=== PATIENT | male | born 1940 | race Caucasian/White ===

== ENCOUNTER 2024-06-05 08:47 | Inpatient (IN) | payer SELFPAY ==
[2024-06-05] VITALS (37 sets, daily range): BP systolic 62–138; BP diastolic 44–72; PULSE 92–125; RESP 18–30; TEMP 36.78072–37.5856; O2SAT 85–100
[~2024-06-05] VITALS: Ht 175.3 cm; Wt 70.8 kg
[2024-06-05] MEDS ORDERED: ALBUTEROL (0.083%) 2.5MG/3ML NEB HHN ONE (09:15)
[2024-06-05] MEDS: SODIUM CHLORIDE 0.9% 1,000 ML IV ONE ×2 (09:17→09:52)
[2024-06-05] MEDS: PANTOPRAZOLE SODIUM 40 MG/VIAL IV ONE (09:26)
[2024-06-05] MEDS: PIPERACILLIN/TAZO 3.375G/50ML 50 ML IV ONE (09:26)
[2024-06-05 09:37] LABS: DIFFERENTIAL COMMENT 1; HEMATOCRIT. 38.5 % (42.0-52.0); HEMOGLOBIN. 12.6 g/dL (14.0-18.0); MEAN CORPUSCULAR HGB CONC 32.8 g/dL (31.0-37.0); MEAN CORPUSCULAR VOLUME 103.6 fL (80.0-94.0); MEAN PLATELET VOLUME 10.7 fl (7.4-10.4); PLATELET 148 x1000/uL (130-400); RED BLOOD CELL COUNT 3.71 mill/uL (4.7-6.1)
[2024-06-05 09:46] LABS: CHLORIDE 110 mEq/L (98-107); POTASSIUM 3.9 mEq/L (3.5-5.1); SODIUM 141 mEq/L (136-145)
[2024-06-05 09:47] LABS: CALCIUM 8.9 mg/dL (8.7-10.4); CARBON DIOXIDE 14 mEq/L (21-32)
[2024-06-05 09:52] LABS: CREATININE 3.3 mg/dL (0.6-1.3); GLUCOSE 102 mg/dL (70-105); TROPONIN I HIGH SENSITIVITY 36 ng/L (3.0-53); UREA NITROGEN BLOOD 48 mg/dL (9-23)
[2024-06-05 09:54] LABS: ALANINE AMINOTRANSFERASE 31 IU/L (10-49); ALBUMIN 3.9 g/dL (3.2-4.8); ASPARTATE AMINOTRANSFERASE 34 IU/L (<34); CREATINE KINASE 584 IU/L (46-171); INR 1.2
[2024-06-05 09:55] LABS: BILIRUBIN DIRECT 0.4 mg/dL (<=3.0); BILIRUBIN TOTAL 0.9 mg/dL (0.1-1.0); PROTEIN TOTAL 6.6 g/dL (6.0-8.3)
[2024-06-05] MEDS: VANCOMYCIN 1G PREMIX 200 ML IV ONE (10:03)
[2024-06-05 10:16] LABS: LACTIC ACID 7.8 mmol/L (0.4-2.0)
[2024-06-05] MEDS: NOREPINEPHRINE 8MG/250ML PMX 250 ML IV ONE (10:23)
[2024-06-05] MEDS: SODIUM CHLORIDE 0.9% 250 ML IV ONE (10:56)
[2024-06-05 11:26] LABS: LACTIC ACID 5.9 mmol/L (0.4-2.0)
[2024-06-05] MEDS: ALBUTEROL (0.083%) 2.5MG/3ML NEB HHN NR (12:42)
[2024-06-05 13:29] LABS: CLARITY URINE CLOUDY (CLEAR); COLOR URINE YELLOW (YELLOW); GLUCOSE URINE NEGATIVE (NEGATIVE); KETONES URINE NEGATIVE (NEGATIVE); LEUKOCYTE ESTERASE URINE TRACE (NEGATIVE); NITRITE URINE NEGATIVE (NEGATIVE); OCCULT BLOOD URINE 2+ (NEGATIVE); PH URINE 5.5 (4.5-8.0); PROTEIN URINE 1+ (NEGATIVE); SPECIFIC GRAVITY URINE 1.018 (1.005-1.030)
[2024-06-05] MEDS ORDERED: ONDANSETRON HCL 4MG/2ML INJ IV PRN (13:45)
[2024-06-05] MEDS ORDERED: MAGNESIUM/ALUMINUM HYDROXIDE/SIMETHICONE 30ML UDC PO PRN (13:45)
[2024-06-05] MEDS ORDERED: PIPERACILLIN/TAZOBACTAM 3.375 G in DEXTROSE 5% WATER 50 ML IV SCH (13:45)
[2024-06-05] MEDS ORDERED: HYDROCODONE/ACETAMINOPHEN 5/325MG TABLET PO PRN (13:45)
[2024-06-05] MEDS ORDERED: IPRATROPIUM/ALBUTEROL 0.5-3(2.5)MG/3ML NEB HHN PRN (13:45)
[2024-06-05] MEDS ORDERED: DOCUSATE SODIUM 100MG CAPSULE PO PRN (13:45)
[2024-06-05] MEDS ORDERED: ACETAMINOPHEN 325MG TABLET PO PRN (13:45)
[2024-06-05] MEDS ORDERED: ENOXAPARIN 40MG/0.4ML SYR SUBCUT SCH (13:45)
[2024-06-05 14:03] LABS: BACTERIA URINE 3+; RBC URINE 15-25 /hpf (0-2); SQUAMOUS EPITHELIAL CELL URINE 1+ /lpf (RARE/1+); WBC URINE 0-2 /hpf (0-2)
[2024-06-05 14:04] LABS: AMORPHOUS SEDIMENT URINE 1+ /lpf
[2024-06-05] MEDS: VANCOMYCIN 500MG PREMIX 100 ML IV SCH (14:14)
[2024-06-05 14:23] LABS: BG BASE EXCESS -11.3 mmol/L (-2.0-3.0); BG CARBOXYHEMOGLOBIN 0.3 % (0.5-1.5); BG DEOXYHEMOGLOBIN 5.8 % (0.0-5.0); BG FRACTION INSPIRED OXYGEN 100; BG HCO3 ACT 12.7 mmol/L (21.0-28.0); BG METHEMOGLOBIN 0.5 % (0.5-1.5); BG OXYGEN SATURATION 94.2 % (94.0-98.0); BG OXYHEMOGLOBIN 93.4 % (94.0-98.0); BG PCO2 24.5 mmHg (35.0-48.0); BG PH 7.334 (7.350-7.450); BG PO2 70.2 mmHg (83.0-108.0); BG SAMPLE SITE LEFT RADIAL; BG TOTAL HEMOGLOBIN 12.5 g/dL (13.5-17.5); BG VENT MODE HIGH FLOW
[2024-06-05] MEDS ORDERED: NALOXONE HCL 0.4MG/ML VIAL IV PRN (14:30)
[2024-06-05 14:37] LABS: SODIUM URINE RANDOM 23 mEq/L
[2024-06-05 14:44] LABS: *AMPHETAMINES SCREEN URINE NEGATIVE (NEGATIVE); *BARBITURATES SCREEN URINE NEGATIVE (NEGATIVE); *BENZODIAZEPINES SCREEN URINE NEGATIVE (NEGATIVE); *COCAINE SCREEN URINE NEGATIVE (NEGATIVE); METHADONE URINE SCREEN NEGATIVE (NEGATIVE); OPIATES URINE SCREEN NEGATIVE (NEGATIVE); PHENCYCLIDINE URINE SCREEN NEGATIVE (NEGATIVE)
[2024-06-05 14:45] LABS: CANNABINOID URINE SCREEN NEGATIVE (NEGATIVE); ECSTASY MDMA SCREEN URINE NEGATIVE (NEGATIVE)
[2024-06-05 14:45] LABS: PLATELET ESTIMATE NORMAL
[2024-06-05] MEDS ORDERED: VASOPRESSIN 20 UNIT in SODIUM CHLORIDE 0.9% 99 ML IV PRN (14:45)
[2024-06-05] MEDS: ASPIRIN 81MG EC TABLET PO SCH (14:57)
[2024-06-05] MEDS: SODIUM CHLORIDE 0.9% 1,000 ML IV SCH (14:57)
[2024-06-05] MEDS: ENOXAPARIN 30MG/0.3ML SYR SUBCUT SCH (14:58)
[2024-06-05 15:03] LABS: IRON 19 ug/dL (65-175)
[2024-06-05 15:05] LABS: GAMMA GLUTAMYL TRANSPEPTIDASE 112 IU/L (<73)
[2024-06-05 15:06] LABS: TOTAL IRON BINDING CAPACITY 443 ug/dl (250-425)
[2024-06-05 15:08] LABS: FERRITIN 910 ng/mL (22-322)
[2024-06-05 15:09] LABS: FOLIC ACID (FOLATE) SERUM > 20.00 ng/mL (>5.38); VITAMIN B12 SERUM 947 pg/mL (211-911)
[2024-06-05] MEDS: PIPERACILLIN/TAZO 3.375G/50ML IV SCH (15:12)
[2024-06-05 15:35] LABS: TROPONIN I HIGH SENSITIVITY 120 ng/L (3.0-53)
[2024-06-05 15:47] LABS: CLARITY URINE CLOUDY (CLEAR); COLOR URINE YELLOW (YELLOW); GLUCOSE URINE NEGATIVE (NEGATIVE); KETONES URINE NEGATIVE (NEGATIVE); LEUKOCYTE ESTERASE URINE TRACE (NEGATIVE); NITRITE URINE NEGATIVE (NEGATIVE); OCCULT BLOOD URINE 2+ (NEGATIVE); PH URINE 5.5 (4.5-8.0); PROTEIN URINE 1+ (NEGATIVE); SPECIFIC GRAVITY URINE 1.018 (1.005-1.030)
[2024-06-05 16:02] LABS: OSMOLALITY URINE 365 mOsm/kg (500-850)
[2024-06-05] MEDS: DOXYCYCLINE 100MG/100ML 100 ML IV SCH (18:41)
[2024-06-05] MEDS: PHENYLEPHRINE 50MG/250ML PMX 250 ML IV PRN (18:41)
[2024-06-05] MEDS: HYDROCORTISONE SOD SUCCINATE 100 MG/2 ML VIAL IV SCH (18:43)
[2024-06-05] MEDS: GUAIFENESIN 600MG ER TABLET PO SCH (20:36)
[2024-06-05] MEDS: IPRATROPIUM/ALBUTEROL 0.5-3(2.5)MG/3ML NEB HHN SCH (20:48)
[2024-06-06] VITALS (102 sets, daily range): BP systolic 64–131; BP diastolic 41–114; PULSE 76–114; RESP 12–26; TEMP 35.33616–36.9474; O2SAT 86–99
[2024-06-06] MEDS: VASOPRESSIN 20 UNIT in SODIUM CHLORIDE 0.9% 99 ML IV PRN (03:08)
[2024-06-06 04:44] LABS: HEMATOCRIT. 37.8 % (42.0-52.0); HEMOGLOBIN. 11.8 g/dL (14.0-18.0); MEAN CORPUSCULAR HGB CONC 31.2 g/dL (31.0-37.0); MEAN CORPUSCULAR VOLUME 105.7 fL (80.0-94.0); MEAN PLATELET VOLUME 9.9 fl (7.4-10.4); PLATELET 124 x1000/uL (130-400); RED BLOOD CELL COUNT 3.58 mill/uL (4.7-6.1); RED CELL DISTRIBUTION WIDTH 17.4 % (11.6-14.6); WHITE BLOOD COUNT 29.2 x1000/uL (4.5-11.0)
[2024-06-06 05:02] LABS: T4 FREE 1.22 ng/dL (0.89-1.76); THYROID STIMULATING HORMONE 0.35 uIU/mL (0.55-4.78)
[2024-06-06 05:16] LABS: POTASSIUM 4.3 mEq/L (3.5-5.1)
[2024-06-06 05:17] LABS: CALCIUM 7.5 mg/dL (8.7-10.4)
[2024-06-06 05:21] LABS: CREATININE 3.1 mg/dL (0.6-1.3)
[2024-06-06 05:23] LABS: LACTIC ACID 2.8 mmol/L (0.4-2.0)
[2024-06-06 06:40] LABS: DIFFERENTIAL COMMENT 1
[2024-06-06] MEDS: DEXT 5%/0.45% NACL 1000ML 1,000 ML IV SCH (08:12)
[2024-06-06 09:53] LABS: PHOSPHORUS 4.9 mg/dL (2.5-4.9)
[2024-06-06] MEDS: PANTOPRAZOLE SODIUM 40 MG/VIAL IV SCH (10:16)
[2024-06-06] MEDS: MAGNESIUM 2 G PREMIX 50 ML IV NR (10:49)
[2024-06-06 10:55] LABS: ANISOCYTOSIS 1+; PLATELET ESTIMATE SLIGHTLY DECREASED
[2024-06-07] VITALS (49 sets, daily range): BP systolic 85–137; BP diastolic 53–81; PULSE 70–99; RESP 15–24; TEMP 36.44736–37.2252; O2SAT 92–100
[2024-06-07] MEDS: DOXYCYCLINE 100MG/100ML 100 ML IV SCH (05:19)
[2024-06-07 05:47] LABS: CARBON DIOXIDE 14 mEq/L (21-32); CHLORIDE 116 mEq/L (98-107); POTASSIUM 3.1 mEq/L (3.5-5.1); SODIUM 141 mEq/L (136-145)
[2024-06-07 05:53] LABS: CREATININE 2.8 mg/dL (0.6-1.3); GLUCOSE 134 mg/dL (70-105); UREA NITROGEN BLOOD 51 mg/dL (9-23)
[2024-06-07 05:55] LABS: PHOSPHORUS 2.9 mg/dL (2.5-4.9)
[2024-06-07 05:57] LABS: HEMATOCRIT. 30.4 % (42.0-52.0); HEMOGLOBIN. 9.9 g/dL (14.0-18.0); MEAN CORPUSCULAR HEMOGLOBIN 33.8 pg (28.0-32.0); MEAN CORPUSCULAR HGB CONC 32.4 g/dL (31.0-37.0); MEAN CORPUSCULAR VOLUME 104.2 fL (80.0-94.0); MEAN PLATELET VOLUME 10.1 fl (7.4-10.4); PLATELET 85 x1000/uL (130-400); RED BLOOD CELL COUNT 2.92 mill/uL (4.7-6.1); RED CELL DISTRIBUTION WIDTH 17.5 % (11.6-14.6); WHITE BLOOD COUNT 31.5 x1000/uL (4.5-11.0)
[2024-06-07 06:47] LABS: DIFFERENTIAL COMMENT 1
[2024-06-07] MEDS: MAGNESIUM 2 G PREMIX 50 ML IV NR (09:51)
[2024-06-07] MEDS: POTASSIUM CHLORIDE 20MEQ TABLET SR PO NR (09:52)
[2024-06-07] MEDS: MIDODRINE HCL 5MG TABLET PO SCH (09:52)
[2024-06-07] MEDS: ENOXAPARIN 30MG/0.3ML SYR SUBCUT SCH (10:04)
[2024-06-07 12:11] LABS: BG BASE EXCESS -13.3 mmol/L (-2.0-3.0); BG CARBOXYHEMOGLOBIN 0.3 % (0.5-1.5); BG DEOXYHEMOGLOBIN 9.1 % (0.0-5.0); BG FRACTION INSPIRED OXYGEN 40; BG HCO3 ACT 11.4 mmol/L (21.0-28.0); BG METHEMOGLOBIN 0.3 % (0.5-1.5); BG OXYGEN SATURATION 90.8 % (94.0-98.0); BG OXYHEMOGLOBIN 90.3 % (94.0-98.0); BG PCO2 23.4 mmHg (35.0-48.0); BG PH 7.306 (7.350-7.450); BG PO2 59.8 mmHg (83.0-108.0); BG SAMPLE SITE RIGHT RADIAL; BG TOTAL HEMOGLOBIN 10.4 g/dL (13.5-17.5); BG VENT MODE HIGH FLOW
[2024-06-07] MEDS ORDERED: ENOXAPARIN 30MG/0.3ML SYR SUBCUT SCH (14:30)
[2024-06-07] MEDS ORDERED: VANCOMYCIN 1.25GM/250ML 250 ML IV SCH (16:00)
[2024-06-07] MEDS: AZITHROMYCIN 500MG/250ML IV SCH (16:25)
[2024-06-07] MEDS: CEFEPIME 1GM/50ML 50 ML IV SCH (16:25)
[2024-06-07] MEDS: FUROSEMIDE 20MG/2ML VIAL IVP NR (16:56)
[2024-06-07] MEDS: ACETAMINOPHEN 325MG TABLET PO PRN (16:58)
[2024-06-07 17:35] LABS: ANISOCYTOSIS 1+; PLATELET ESTIMATE DECREASED
[2024-06-08] VITALS (31 sets, daily range): BP systolic 104–149; BP diastolic 61–96; PULSE 69–90; RESP 15–24; TEMP 36.22512–36.89184; O2SAT 93–98
[2024-06-08 05:53] LABS: HEMATOCRIT. 36.6 % (42.0-52.0); HEMOGLOBIN. 11.6 g/dL (14.0-18.0); MEAN CORPUSCULAR HEMOGLOBIN 33.5 pg (28.0-32.0); MEAN CORPUSCULAR HGB CONC 31.6 g/dL (31.0-37.0); MEAN PLATELET VOLUME 11.3 fl (7.4-10.4); PLATELET 105 x1000/uL (130-400); RED BLOOD CELL COUNT 3.46 mill/uL (4.7-6.1); RED CELL DISTRIBUTION WIDTH 17.9 % (11.6-14.6); WHITE BLOOD COUNT 30.9 x1000/uL (4.5-11.0)
[2024-06-08 06:01] LABS: CARBON DIOXIDE 14 mEq/L (21-32); CHLORIDE 119 mEq/L (98-107); POTASSIUM 3.5 mEq/L (3.5-5.1); SODIUM 143 mEq/L (136-145)
[2024-06-08 06:02] LABS: CALCIUM 8.1 mg/dL (8.7-10.4)
[2024-06-08 06:06] LABS: CREATININE 2.6 mg/dL (0.6-1.3); GLUCOSE 120 mg/dL (70-105)
[2024-06-08 06:07] LABS: UREA NITROGEN BLOOD 46 mg/dL (9-23)
[2024-06-08 07:12] LABS: DIFFERENTIAL COMMENT 1
[2024-06-08] MEDS: MIDODRINE HCL 5MG TABLET PO SCH (08:47)
[2024-06-08 10:13] LABS: PLATELET ESTIMATE SLIGHTLY DECREASED
[2024-06-08 10:14] LABS: ANISOCYTOSIS 1+
[2024-06-08 10:43] LABS: BG BASE EXCESS -12.3 mmol/L (-2.0-3.0); BG CARBOXYHEMOGLOBIN 0.3 % (0.5-1.5); BG DEOXYHEMOGLOBIN 7.4 % (0.0-5.0); BG FRACTION INSPIRED OXYGEN 50; BG HCO3 ACT 12.7 mmol/L (21.0-28.0); BG METHEMOGLOBIN 0.3 % (0.5-1.5); BG OXYGEN SATURATION 92.6 % (94.0-98.0); BG PH 7.292 (7.350-7.450); BG PO2 62.9 mmHg (83.0-108.0); BG SAMPLE SITE RIGHT RADIAL; BG TOTAL HEMOGLOBIN 11.3 g/dL (13.5-17.5); BG VENT MODE HIGH FLOW
[2024-06-08] MEDS: VANCOMYCIN 250MG/5ML ORAL SYRINGE PO SCH (11:46)
[2024-06-08] MEDS: METRONIDAZOLE 500 MG PREMIX 100 ML IV SCH (13:40)
[2024-06-09] VITALS (34 sets, daily range): BP systolic 89–133; BP diastolic 57–86; PULSE 58–91; RESP 15–21; TEMP 36.44736–36.6696; O2SAT 93–98
[2024-06-09 06:13] LABS: BASOPHILS % 0.2 % (0.0-2.0); DIFFERENTIAL COMMENT 0; EOSINOPHILS % 1.2 % (0.0-5.0); HEMATOCRIT. 32.9 % (42.0-52.0); HEMOGLOBIN. 10.7 g/dL (14.0-18.0); LYMPHOCYTES % 10.5 % (20.0-50.0); MEAN CORPUSCULAR HEMOGLOBIN 33.6 pg (28.0-32.0); MEAN CORPUSCULAR HGB CONC 32.7 g/dL (31.0-37.0); MEAN CORPUSCULAR VOLUME 102.7 fL (80.0-94.0); MEAN PLATELET VOLUME 11.5 fl (7.4-10.4); NEUTROPHILS % 80.1 % (40.0-76.0); PLATELET 99 x1000/uL (130-400); RED CELL DISTRIBUTION WIDTH 17.2 % (11.6-14.6); WHITE BLOOD COUNT 14.8 x1000/uL (4.5-11.0)
[2024-06-09 06:14] LABS: POTASSIUM 3.4 mEq/L (3.5-5.1)
[2024-06-09 06:20] LABS: CREATININE 2.3 mg/dL (0.6-1.3)
[2024-06-09] MEDS: POTASSIUM CHLORIDE 20MEQ TABLET SR PO NR (08:21)
[2024-06-09] MEDS: TAMSULOSIN HCL 0.4MG SR CAPSULE PO SCH (08:22)
[2024-06-09] MEDS: MIDODRINE HCL 5MG TABLET PO SCH (08:23)
[2024-06-09 11:39] LABS: BG CARBOXYHEMOGLOBIN 0.3 % (0.5-1.5); BG DEOXYHEMOGLOBIN 4.7 % (0.0-5.0); BG FRACTION INSPIRED OXYGEN 50; BG HCO3 ACT 13.3 mmol/L (21.0-28.0); BG METHEMOGLOBIN 0.3 % (0.5-1.5); BG OXYGEN SATURATION 95.3 % (94.0-98.0); BG OXYHEMOGLOBIN 94.7 % (94.0-98.0); BG PCO2 25.7 mmHg (35.0-48.0); BG PH 7.332 (7.350-7.450); BG PO2 77.9 mmHg (83.0-108.0); BG SAMPLE SITE LEFT RADIAL; BG TOTAL HEMOGLOBIN 11.8 g/dL (13.5-17.5); BG VENT MODE HIGH FLOW
[2024-06-09] MEDS: DEXT 5% IV SCH (12:29)
[2024-06-09] MEDS: WATER IV SCH (12:29)
[2024-06-09] MEDS: CITRIC ACID/SODIUM CITRATE SOLN 30ML UDC PO SCH (13:09)
[2024-06-10] VITALS (52 sets, daily range): BP systolic 99–184; BP diastolic 61–136; PULSE 76–108; RESP 15–25; TEMP 36.50292–36.78072; O2SAT 92–100
[2024-06-10 05:31] LABS: BASOPHILS % 0.3 % (0.0-2.0); DIFFERENTIAL COMMENT 0; EOSINOPHILS % 2.7 % (0.0-5.0); HEMATOCRIT. 34.2 % (42.0-52.0); LYMPHOCYTES % 18.8 % (20.0-50.0); MEAN CORPUSCULAR HEMOGLOBIN 33.3 pg (28.0-32.0); MEAN CORPUSCULAR HGB CONC 32.3 g/dL (31.0-37.0); MEAN PLATELET VOLUME 10.7 fl (7.4-10.4); MONOCYTES % 13.6 % (2.0-8.0); NEUTROPHILS % 64.6 % (40.0-76.0); PLATELET 110 x1000/uL (130-400); RED BLOOD CELL COUNT 3.32 mill/uL (4.7-6.1); RED CELL DISTRIBUTION WIDTH 17.6 % (11.6-14.6)
[2024-06-10 05:33] LABS: CHLORIDE 117 mEq/L (98-107); POTASSIUM 3.4 mEq/L (3.5-5.1); SODIUM 141 mEq/L (136-145)
[2024-06-10 05:34] LABS: CARBON DIOXIDE 18 mEq/L (21-32)
[2024-06-10 05:39] LABS: CREATININE 1.9 mg/dL (0.6-1.3); GLUCOSE 122 mg/dL (70-105); UREA NITROGEN BLOOD 35 mg/dL (9-23)
[2024-06-10 05:41] LABS: PHOSPHORUS 2.4 mg/dL (2.5-4.9)
[2024-06-10] MEDS: MAGNESIUM 2 G PREMIX 50 ML IV NR (08:51)
[2024-06-10] MEDS: POTASSIUM PHOSPHATE 30 MMOL in DEXT 5% WATER 490 ML IV NR (09:42)
[2024-06-10] MEDS: CLONIDINE 0.1MG TABLET PO PRN (19:15)
[2024-06-10] MEDS: METRONIDAZOLE 500MG TABLET PO SCH (21:16)
[2024-06-11] VITALS (8 sets, daily range): BP systolic 99–132; BP diastolic 56–82; PULSE 80–98; RESP 17–22; TEMP 36.28068–37.00296; O2SAT 95–99
[2024-06-11] MEDS: HYDROCORTISONE SOD SUCCINATE 100 MG/2 ML VIAL IV ONE (01:11)
[2024-06-11] MEDS: NOREPINEPHRINE 8MG/250ML PMX 250 ML IV ONE (01:11)
[2024-06-11 06:13] LABS: CHLORIDE 117 mEq/L (98-107); POTASSIUM 3.9 mEq/L (3.5-5.1); SODIUM 142 mEq/L (136-145)
[2024-06-11 06:14] LABS: CARBON DIOXIDE 20 mEq/L (21-32)
[2024-06-11 06:18] LABS: BASOPHILS % 0.3 % (0.0-2.0); DIFFERENTIAL COMMENT 0; EOSINOPHILS % 2.4 % (0.0-5.0); HEMOGLOBIN. 11.4 g/dL (14.0-18.0); LYMPHOCYTES % 21.3 % (20.0-50.0); MEAN CORPUSCULAR HEMOGLOBIN 32.9 pg (28.0-32.0); MEAN CORPUSCULAR HGB CONC 31.6 g/dL (31.0-37.0); MEAN CORPUSCULAR VOLUME 104.1 fL (80.0-94.0); MEAN PLATELET VOLUME 10.1 fl (7.4-10.4); MONOCYTES % 12.8 % (2.0-8.0); NEUTROPHILS % 63.2 % (40.0-76.0); PLATELET 139 x1000/uL (130-400); RED BLOOD CELL COUNT 3.46 mill/uL (4.7-6.1); RED CELL DISTRIBUTION WIDTH 17.3 % (11.6-14.6); WHITE BLOOD COUNT 7.9 x1000/uL (4.5-11.0)
[2024-06-11 06:19] LABS: CREATININE 1.8 mg/dL (0.6-1.3); GLUCOSE 107 mg/dL (70-105); UREA NITROGEN BLOOD 33 mg/dL (9-23)
[2024-06-11 06:21] LABS: AMMONIA < 17 uMol/L (<32); PHOSPHORUS 3.4 mg/dL (2.5-4.9)
[2024-06-11] MEDS: FUROSEMIDE 20MG/2ML VIAL IVP NR (08:23)
[2024-06-11] MEDS: MAGNESIUM 2 G PREMIX 50 ML IV ONE (11:24)
[2024-06-11] MEDS: MIDODRINE HCL 5MG TABLET PO SCH (17:00)
[2024-06-12] VITALS: BP 115/58; PULSE 104; RESP 18; TEMP 36.78072; O2SAT 94
[2024-06-12 04:00] VITALS: BP 136/70; PULSE 94; RESP 18; TEMP 36.6696; O2SAT 97
[2024-06-12] MEDS: GUAIFENESIN 200MG/10ML SUGAR FREE UDC PO PRN (04:16)
[2024-06-12 08:06] VITALS: BP 116/64; PULSE 84; RESP 20; TEMP 36.44736; O2SAT 96
[2024-06-12 10:25] LABS: BASOPHILS % 0.3 % (0.0-2.0); DIFFERENTIAL COMMENT 0; EOSINOPHILS % 1.9 % (0.0-5.0); HEMATOCRIT. 30.5 % (42.0-52.0); HEMOGLOBIN. 10.2 g/dL (14.0-18.0); LYMPHOCYTES % 19.1 % (20.0-50.0); MEAN CORPUSCULAR HEMOGLOBIN 34.1 pg (28.0-32.0); MEAN CORPUSCULAR HGB CONC 33.4 g/dL (31.0-37.0); MEAN PLATELET VOLUME 10.2 fl (7.4-10.4); MONOCYTES % 11.2 % (2.0-8.0); NEUTROPHILS % 67.5 % (40.0-76.0); PLATELET 160 x1000/uL (130-400); RED BLOOD CELL COUNT 2.99 mill/uL (4.7-6.1); RED CELL DISTRIBUTION WIDTH 16.8 % (11.6-14.6); WHITE BLOOD COUNT 9.3 x1000/uL (4.5-11.0)
[2024-06-12 12:10] VITALS: BP 118/72; PULSE 86; RESP 18; TEMP 36.78072; O2SAT 94
[2024-06-12 12:46] LABS: CHLORIDE 110 mEq/L (98-107); POTASSIUM 3.5 mEq/L (3.5-5.1); SODIUM 141 mEq/L (136-145)
[2024-06-12 12:49] LABS: CALCIUM 8.1 mg/dL (8.7-10.4); CARBON DIOXIDE 22 mEq/L (21-32)
[2024-06-12 12:54] LABS: CREATININE 1.9 mg/dL (0.6-1.3); GLUCOSE 169 mg/dL (70-105); UREA NITROGEN BLOOD 35 mg/dL (9-23)
[2024-06-12 12:56] LABS: ALANINE AMINOTRANSFERASE 41 IU/L (10-49); ALBUMIN 2.6 g/dL (3.2-4.8); ASPARTATE AMINOTRANSFERASE 31 IU/L (<34); BILIRUBIN DIRECT 0.2 mg/dL (<=3.0); BILIRUBIN TOTAL 0.5 mg/dL (0.1-1.0); PHOSPHORUS 2.9 mg/dL (2.5-4.9); PROTEIN TOTAL 5.4 g/dL (6.0-8.3)
[2024-06-12] MEDS: MAGNESIUM 2 G PREMIX 50 ML IV NR (15:22)
[2024-06-12 16:00] VITALS: BP 122/74; PULSE 91; RESP 20; TEMP 36.6696; O2SAT 93
[2024-06-12] MEDS: MIDODRINE HCL 5MG TABLET PO SCH (17:00)
[2024-06-12 20:00] VITALS: BP 112/55; PULSE 92; RESP 19; TEMP 37.33632; O2SAT 92
[2024-06-13] VITALS: BP 141/75; PULSE 92; RESP 18; TEMP 37.39188; O2SAT 92
[2024-06-13 04:00] VITALS: BP 124/77; PULSE 93; RESP 18; TEMP 37.33632; O2SAT 92
[2024-06-13 06:44] LABS: BASOPHILS % 0.5 % (0.0-2.0); DIFFERENTIAL COMMENT 0; EOSINOPHILS % 2.1 % (0.0-5.0); HEMOGLOBIN. 10.3 g/dL (14.0-18.0); LYMPHOCYTES % 15.7 % (20.0-50.0); MEAN CORPUSCULAR HEMOGLOBIN 34.8 pg (28.0-32.0); MEAN CORPUSCULAR HGB CONC 34.3 g/dL (31.0-37.0); MEAN CORPUSCULAR VOLUME 101.3 fL (80.0-94.0); NEUTROPHILS % 71.7 % (40.0-76.0); PLATELET 185 x1000/uL (130-400); RED BLOOD CELL COUNT 2.96 mill/uL (4.7-6.1); RED CELL DISTRIBUTION WIDTH 16.7 % (11.6-14.6); WHITE BLOOD COUNT 8.9 x1000/uL (4.5-11.0)
[2024-06-13 06:45] LABS: CARBON DIOXIDE 25 mEq/L (21-32); CHLORIDE 108 mEq/L (98-107); POTASSIUM 3.6 mEq/L (3.5-5.1); SODIUM 141 mEq/L (136-145)
[2024-06-13 06:46] LABS: CALCIUM 8.3 mg/dL (8.7-10.4)
[2024-06-13 06:51] LABS: CREATININE 1.9 mg/dL (0.6-1.3); GLUCOSE 106 mg/dL (70-105); UREA NITROGEN BLOOD 36 mg/dL (9-23)
[2024-06-13 06:53] LABS: PHOSPHORUS 2.8 mg/dL (2.5-4.9)
[2024-06-13 08:00] VITALS: BP 159/87; PULSE 94; RESP 20; TEMP 36.6696; O2SAT 93
[2024-06-13] MEDS ORDERED: ALBU90AE INH (11:02)
[2024-06-13] MEDS ORDERED: CEFP200T14 MT (11:02)
[2024-06-13] MEDS ORDERED: TAMS-11 MT (11:02)
[2024-06-13] MEDS ORDERED: METR-167 PO (11:02)
[2024-06-13 12:00] VITALS: BP 142/67; PULSE 88; RESP 18; TEMP 36.114; TEMP 36.11400; O2SAT 93
[2024-06-13 14:39] VITALS: BP 142/67; PULSE 88; TEMP 97; O2SAT 93
[2024-06-14] MEDS ORDERED: CITRIC ACID/SODIUM CITRATE SOLN 30ML UDC PO SCH (09:00)
== END 2024-06-13 16:17 | disposition home health service (06) | DRG 720 ==
LOC: ER 09:04 → EDBEDREQ 09:50 → EDBEDREQTM 14:56 → EDBEDREQ 14:56 → CVICU 16:45 → 8WST 06-11 00:59
PROVIDERS: ADMIT Hospitalist; ATTEND Hospitalist
PROC: 06HY33Z Insertion of Infusion Device into Lower Vein, Percutaneous Approach (ICD-10-PCS; principal; 2024-06-05)
PROC: 5A0955A Assistance with Respiratory Ventilation, Greater than 96 Consecutive Hours, High Flow/Velocity Cannula (ICD-10-PCS; 2024-06-05)
PROC: 5A0935A Assistance with Respiratory Ventilation, Less than 24 Consecutive Hours, High Flow/Velocity Cannula (ICD-10-PCS; 2024-06-11)
DX: A41.9 Sepsis, unspecified organism (principal); J96.01 Acute respiratory failure with hypoxia; N17.0 Acute kidney failure with tubular necrosis; R65.21 Severe sepsis with septic shock; G93.41 Metabolic encephalopathy; D69.6 Thrombocytopenia, unspecified; E87.20 Acidosis, unspecified; J18.9 Pneumonia, unspecified organism; D63.1 Anemia in chronic kidney disease; I21.A1 Myocardial infarction type 2; D53.9 Nutritional anemia, unspecified; N39.0 Urinary tract infection, site not specified; M62.82 Rhabdomyolysis; N18.4 Chronic kidney disease, stage 4 (severe); E05.90 Thyrotoxicosis, unspecified without thyrotoxic crisis or storm; E83.42 Hypomagnesemia; N28.1 Cyst of kidney, acquired; R74.01 Elevation of levels of liver transaminase levels; I48.0 Paroxysmal atrial fibrillation; N40.1 Benign prostatic hyperplasia with lower urinary tract symptoms; K52.9 Noninfective gastroenteritis and colitis, unspecified
CPT/HCPCS: 36415; 36600; 71045; 71250; 74176; 76770; 80048; 80061; 80076; 80202; 80305; 81003; 82140; 82270; 82375; 82550; 82607; 82728; 82746; 82805; 82962; 82977; 83540; 83550; 83605; 83735; 83880; 83935; 84100; 84145; 84153; 84300; 84439; 84443; 84484; 85025; 86850; 86900; 92610; 93005; 93306; 93970; 94640; 97162; 97166; 97530; 99291; J0456; J0692; J1650; J1720; J1940; J2470; J2543; J3370; J3475; J3490; J7030; J7050; J7060